=== PATIENT | male | born 1945 | race African-American/Black ===

== ENCOUNTER 2018-11-25 19:16 | Emergency (ER) | payer MEDICARE ==
[~2018-11-25] VITALS: Ht 172.7 cm; Wt 84.4 kg
--- OUTSIDE RECORDS SUMMARY | 2018-11-25 19:18 | XMS REPORT ---
Author Author [facility] Address Unknown Phone Unavailable Care Team Providers Care Welfare Eligibility Worker Name Role Phone Unavailable Unavailable Payers Payer Name Policy Type Policy Number Effective Date Expiration Date Problems This patient has no known problems. Allergies, Adverse Reactions, Alerts This patient has no known allergies or adverse reactions. Medications This patient has no known medications.
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
[2018-11-25 21:35] VITALS: BP 119/78
== END 2018-11-25 21:58 | disposition home or self-care (01) ==
LOC: FSED 19:16
DX: S13.4XXA Sprain of ligaments of cervical spine, initial encounter (principal); V43.52XA Car driver injured in collision with other type car in traffic accident, initial encounter; Y92.488 Other paved roadways as the place of occurrence of the external cause; E03.9 Hypothyroidism, unspecified
CPT/HCPCS: 72125; 99283